=== PATIENT | female | born 1980 | race Caucasian/White ===

== ENCOUNTER 2022-12-05 10:53 | Emergency (ER) | payer SELFPAY ==
--- NOTE | 2022-12-05 11:05 | ERPHSYRPT ---
- History of Present Illness Time Seen by Provider: 12/05/22 11:04 Source: patient Exam Limitations: no limitations Physician History: This is an overweight 42-year-old white female patient who was walking in a nearby park yesterday and then twisted her right foot and ankle. Today, she noticed increased tenderness, swelling and bruising to her right foot and ankle. She can bear weight but it hurts to do so. Method of Injury: twisted Occurred: yesterday Quality: aching, throbbing Severity of Pain-Max: mild Severity of Pain-Current: mild (To moderate to moderate) Lower Extremities Pain: foot: right, ankle: right Modifying Factors: Improves With: movement Associated Symptoms: other (Can bear weight but it hurts to do so) Allergies/Adverse Reactions: hydromorphone Allergy (Verified 12/05/22 11:09) Difficulty Breathing morphine Allergy (Verified 12/05/22 11:09) Difficulty Breathing nickel Allergy (Verified 12/05/22 11:09) Hives titanium Allergy (Verified 12/05/22 11:09) Hives zinc Allergy (Verified 12/05/22 11:09) Hives Travel Risk - International Travel Have you traveled outside of the country in past 3 weeks: No - Coronavirus Screening Are you exhibiting any of the following symptoms?: No Close contact with a COVID-19 positive Pt in past 14-21 Days: No - Review of Systems Constitutional: No Symptoms Eyes: No Symptoms Ears, Nose, & Throat: No Symptoms Respiratory: No Symptoms Cardiac: No Symptoms Abdominal/Gastrointestinal: No Symptoms Genitourinary Symptoms: No Symptoms Musculoskeletal: Fall, Injury (Right foot and ankle) Skin: No Symptoms Neurological: No Symptoms Psychological: No Symptoms Endocrine: No Symptoms Hematologic/Lymphatic: No Symptoms Immunological/Allergic: No Symptoms All Other Systems: Reviewed and Negative - Past Medical History Pertinent Past Medical History: Yes - Past Surgical History Past Surgical History: Yes - Nursing Vital Signs Nursing Vital Signs: Initial Vital Signs Blood Pressure 147/82 12/05/22 11:08 Pain Scale Pain Intensity 0 - Physical Exam General Appearance: no apparent distress, alert, anxiety, obese Eyes, Ears, Nose, Throat Exam: normal ENT inspection, moist mucous membranes Neck Exam: normal inspection, non-tender, supple, full range of motion Cardiovascular/Respiratory Exam: chest non-tender, no respiratory distress Gastrointestinal/Abdominal Exam: non-tender Back Exam: normal inspection, normal range of motion, No CVA tenderness, No vertebral tenderness Hips Exam: bilateral: non-tender, normal inspection, normal range of motion, no evidence of injury Legs Exam: bilateral leg: non-tender, normal inspection, normal range of motion, no evidence of injury Knees Exam: bilateral knee: non-tender, normal inspection, normal range of motion, no evidence of injury Ankle Exam: right ankle: bone tenderness, soft tissue tenderness, swelling, left ankle: non-tender, normal inspection, normal range of motion, no evidence of injury Foot Exam: right foot: bone tenderness, ecchymosis, soft tissue tenderness, swelling, left foot: non-tender, normal inspection, normal range of motion, no evidence of injury Neuro/Tendon Exam: normal sensation, normal motor functions, normal tendon functions, responds to pain, no evidence tendon injury Mental Status Exam: alert, oriented x 3, cooperative Skin Exam: normal color, warm, dry SpO2 Interpretation: normal O2 Delivery: Room Air - Course Nursing assessment & vital signs reviewed: Yes Ordered Tests: Active Orders 24 hr Category Date Time Status ANKLE (3 VIEWS) Stat Exams 12/05/22 11:16 Completed FOOT (MINIMUM 3 VIEWS) Stat Exams 12/05/22 11:16 Completed - Progress Progress: improved, pain not gone completely Progress Note: 12/05/22 11:42 This patient's medical issue is 1 of low complexity. The level of complexity in the work-up performed is based on review of the patient's past medical history, review of the patient's medication list, review of the patient's drug allergy list, history of present illness and physical findings on examination. The work-up in this patient includes x-ray of the right foot and ankle. 12/05/22 12:03 X-ray of the right ankle shows no acute fracture or dislocation. I read the impression from the radiologist prior to discharging the patient home. X-ray of the right foot was interpreted by the radiologist and I reviewed the impression prior to discharging the patient home. There is corner fractures base distal first phalanx medial aspect, head proximal first phalanx, lateral aspect and base proximal first phalanx medial aspect. 12/05/22 12:09 Patient states that she can take Percocet or [place] pain medication without issues 12/05/22 12:10 Counseled pt/family regarding: diagnosis, need for follow-up, rad results Medical Desision Making - Diagnostic Testing Diagnostic test were ordered, analyzed, and reviewed by me: Yes Radiological Interpretation: Reviewed by me, Teleradiologist Report - Risk of complications The pt has a mod risk of morbidity or mortality based on: Need for prescription drug management - Departure Departure Disposition: Home Clinical Impression: Closed fracture of one or more phalanges of right foot Condition: Stable Critical Care Time: No Referrals: DOCTOR,NO FAMILY [Primary Care Provider] - Follow up/PCP as directed Additional Instructions: Ice pack to tender area 3 times a day for the next [address] Grigsby, podiatry, today to make arrangements for follow-up appointment for further evaluation management. Use walking shoe. Prescriptions: Oxycodone HCl/Acetaminophen [Percocet 5-325 mg Tablet] 1 each PO Q8H PRN PRN #6 tablet MDD 3 PRN Reason: Moderate To Severe Pain
[2022-12-05 11:27] VITALS: TEMP 99
--- NOTE | 2022-12-05 11:55 | XRAY ---
Indication: Pain and swelling following fall. Comparison: None 3 view right ankle demonstrates tiny posterior heel spur. No other bony, articular, or soft tissue abnormalities.
--- NOTE | 2022-12-05 11:59 | XRAY ---
Indication: Pain and swelling following fall. Comparison: None 3 nonweightbearing views right foot demonstrates nondisplaced corner fractures base distal 1st phalanx medial aspect, head proximal 1st phalanx lateral aspect, and base proximal 1st phalanx medial aspect. Incidental tiny posterior heel spur. No other bony, articular, or soft tissue abnormalities.
[2022-12-05 12:03] VITALS: BP 124/81; PULSE 70; O2SAT 95
[2022-12-05 12:38] VITALS: RESP 16
== END 2022-12-05 12:34 | disposition home or self-care (01) ==
LOC: ED 10:53
DX: S92.491A Other fracture of right great toe, initial encounter for closed fracture (principal); X50.0XXA Overexertion from strenuous movement or load, initial encounter; Y93.01 Activity, walking, marching and hiking; Y92.830 Public park as the place of occurrence of the external cause; M25.571 Pain in right ankle and joints of right foot; Z79.891 Long term (current) use of opiate analgesic
CPT/HCPCS: 73610; 73630; 99283

== ENCOUNTER 2023-09-03 13:38 | Day surgery (SDC) | payer BC ==
[2023-09-03] MEDS ORDERED: Lactated Ringers 1,000 ML IV ONE (15:32)
[2023-09-03] MEDS ORDERED: TORAdol 30 mg Injection ONE (16:02)
[2023-09-03] MEDS ORDERED: DIPRIVAN 200 MG/20 ML IV ONE (16:11)
--- NOTE | 2023-09-03 16:51 | XRAY ---
Indication: Left L4-S1 transforaminal MORRIS. Intraoperative fluoroscopy provided for 23 seconds. 3 digital spot image submitted for interpretation demonstrates posterior needle tips projecting over the expected left L4 and L5 nerve roots. Small amount of contrast injected for needle tip placement. Correlate with intraoperative findings/report.
--- NOTE | 2023-09-03 17:04 | XRAY ---
23 seconds of fluoroscopy was used in surgery for a left L4-S1 transforaminal MORRIS.
== END 2023-09-03 16:27 | disposition home or self-care (01) ==
LOC: SDC-PAIN 13:38
PROVIDERS: ATTEND Psychiatry & Neurology Pain Medicine
DX: M47.816 Spondylosis without myelopathy or radiculopathy, lumbar region (principal)
CPT/HCPCS: 64483; 64484; 72100; 77003; J1885; J2704; Q9966

== ENCOUNTER 2023-10-18 09:12 | Emergency (ER) | payer BC ==
[2023-10-18 09:28] VITALS: TEMP 97
[2023-10-18] MEDS ORDERED: TORAdol 30 mg Injection ONE (09:43)
[2023-10-18] MEDS: TORAdol 30 mg Injection IM ONE (09:45)
[2023-10-18] MEDS ORDERED: Norflex 60 MG/2 ML ONE (10:33)
[2023-10-18] MEDS: Norflex 60 MG/2 ML IM ONE (10:34)
[2023-10-18 11:16] VITALS: O2SAT 95
--- NOTE | 2023-10-18 12:04 | ERPHSYRPT ---
- History of Present Illness Time Seen by Provider: 10/18/23 10:32 Patient Subjective Stated Complaint: pt here for pain to left hip that radiates down leg, she sees pain for back. Triage Nursing Assessment: pt alert, arrived per wc, able to undress, resp easy, skin w/d/p. moves all ext well, Physician History: 43 years old fairly healthy female with history of back pain on Lyrica presented in the ER with complaining of pain right hip/right groin area of sudden onset while she tried to get up from a sitting position. Patient reports moderate to severe sharp pain, worse with ambulation and movements at the hip and better with resting. No numbness tingling or weakness of lower extremity. Patient reports this pain different than her routine back pain. Denies any fall or trauma. She has taken [id number] pain medications at home with no significant relief. Allergies/Adverse Reactions: hydromorphone Allergy (Verified 10/18/23 09:21) Difficulty Breathing morphine Allergy (Verified 10/18/23 09:21) Difficulty Breathing nickel Allergy (Verified 10/18/23 09:21) Hives titanium Allergy (Verified 10/18/23 09:21) Hives zinc Allergy (Verified 10/18/23 09:21) Hives Home Medications: Pregabalin [Lyrica 75 mg Cap] 75 mg PO BID 10/18/23 [History] Hx Tetanus, Diphtheria Vaccination/Date Given: Yes Hx Influenza Vaccination/Date Given: No Hx Pneumococcal Vaccination/Date Given: No Immunizations Up to Date: Yes Travel Risk - International Travel Have you traveled outside of the country in past 3 weeks: No - Emerging Infectious Disease Are you exhibiting symptoms associated with any current EIDs: No - Review of Systems Constitutional: No Symptoms Ears, Nose, & Throat: No Symptoms Respiratory: No Symptoms Cardiac: No Symptoms Abdominal/Gastrointestinal: No Symptoms Genitourinary Symptoms: No Symptoms Musculoskeletal: Back Pain, Joint Pain Skin: No Symptoms Neurological: No Symptoms Endocrine: No Symptoms Hematologic/Lymphatic: No Symptoms - Past Medical History Pertinent Past Medical History: Yes ENT History: No Pertinent History Cardiac History: No Pertinent History Respiratory History: No Pertinent History Endocrine Medical History: No Pertinent History Musculoskeletal History: No Pertinent History GI Medical History: GERD History: No Pertinent History Psycho-Social History: Bipolar, Depression Female Reproductive Disorders: No Pertinent History - Past Surgical History Past Surgical History: Yes Gastrointestinal: Appendectomy, Cholecystectomy Musculoskeletal: Orthopedic Surgery Female Surgical History: Hysterectomy, Section, Tubal Ligation Other Surgical History: thumb tumor removed - Female History Hx Last Menstrual Period: hyster Hx Now: No - Social History Smoking Status: Light tobacco smoker Exposure to second hand smoke: No Drug Use: none Patient Lives Alone: Yes - Social Determinants of Health Will the patient participate in the screening: Declined to provide - Nursing Vital Signs Nursing Vital Signs: Initial Vital Signs Temperature 97.0 F 10/18/23 09:27 Pulse Rate 81 10/18/23 09:27 Respiratory Rate 18 10/18/23 09:27 Blood Pressure 131/91 10/18/23 09:27 O2 Sat by Pulse Oximetry 98 10/18/23 09:27 Pain Scale Pain Intensity [Left Hip] 8 Pain Intensity 5 - Physical Exam General Appearance: no apparent distress Neck Exam: normal inspection, full range of motion Cardiovascular/Respiratory Exam: normal breath sounds, regular rate/rhythm Gastrointestinal/Abdominal Exam: non-tender, soft, no organomegaly, no hernia, tenderness (Left groin), No guarding Back Exam: normal inspection, normal range of motion, No vertebral tenderness, No muscle spasm, No point tenderness Hips Exam: right: non-tender, normal inspection, normal range of motion, no evidence of injury, left: limited range of motion, pain, soft tissue tenderness Legs Exam: bilateral leg: non-tender, normal inspection, normal range of motion, no evidence of injury Knees Exam: bilateral knee: non-tender, normal inspection, normal range of motion, no evidence of injury Neuro/Tendon Exam: normal sensation, normal motor functions, normal tendon functions Mental Status Exam: alert, oriented x 3, cooperative Skin Exam: normal color SpO2 Interpretation: normal SpO2: 95 O2 Delivery: Room Air Ordered Tests: Active Orders 24 hr Category Date Time Status HIP UNI (2V) INCL PEL IF DONE Stat Exams 10/18/23 09:28 Taken Medication Summary Discontinued Medications Generic Name Dose Route Start Last Admin Trade Name Freq PRN Reason Stop Dose Admin Ketorolac Tromethamine 30 mg 10/18/23 09:42 10/18/23 09:45 Ketorolac Tromethamine 30 Mg/Ml Inj IM 10/18/23 09:43 30 mg STAT ONE Administration Ketorolac Tromethamine Confirm 10/18/23 09:43 Ketorolac Tromethamine 30 Mg/Ml Inj Administered 10/18/23 09:44 Dose 30 mg .ROUTE .STK-MED ONE Orphenadrine Citrate 60 mg 10/18/23 10:32 10/18/23 10:34 Orphenadrine Citrate 60 Mg/2 Ml Vial IM 10/18/23 10:33 60 mg STAT ONE Administration Orphenadrine Citrate Confirm 10/18/23 10:33 Orphenadrine Citrate 60 Mg/2 Ml Vial Administered 10/18/23 10:34 Dose 60 mg .ROUTE .STK-MED ONE - Progress Progress: improved Progress Note: 10/18/23 12:01 43-year-old with history of back pain is evaluated in the ER for left hip/groin pain sudden onset without fall or trauma yesterday. Patient has pain with movements at the hip. No bony tenderness, does have some tenderness in the groin area. No obvious swelling or hernia. I have obtained x-rays of hip which are negative for acute fracture dislocation reviewed by me, official report is pending. I believe patient has muscle strain. She is given Toradol and Norflex, on reevaluation her pain is better but not completely resolved. Will continue with Flexeril to go home and recommended taking Tylenol ibuprofen along with Lyrica which she takes regularly. Discussed signs symptoms of cauda equina, worsening back pain, hip or groin pain needing return to ER which she seems understanding. Stable for discharge. Counseled pt/family regarding: need for follow-up, rad results Medical Desision Making - Diagnostic Testing Diagnostic test were ordered, analyzed, and reviewed by me: Yes Radiological Interpretation: Interpreted by me, Reviewed by me - Risk of complications The pt has a mod risk of morbidity or mortality based on: Need for prescription drug management - Departure Departure Disposition: Home Clinical Impression: Strain of left groin Condition: Stable Critical Care Time: No Referrals: POONAM ARELLANO NP [Primary Care Provider] - Follow up with PCP 1 day Instructions: Low Back Pain (DC), Sciatica (DC), Groin Strain (DC) Additional Instructions: Continue with Lyrica and take Tylenol ibuprofen as needed. Follow-up with primary care and orthopedics for reevaluation if pain does not go away. Return to ER for excruciating pain, difficulty ambulation or if noticed any swelling in the groin, numbness tingling or weakness/loss of bowel or bladder control/saddle anesthesia. Etc. Prescriptions: Cyclobenzaprine HCl 10 mg [Flexeril 10 MG] 10 mg PO TID 5 Days #15 tablet
[2023-10-18 12:19] VITALS: BP 125/77; PULSE 51; RESP 17
--- NOTE | 2023-10-18 19:54 | XRAY ---
Indication: Pain. No known injury. Comparison: May 13, 2023 2 view left hip obtained. Again no bony, articular, or soft tissue abnormalities.
== END 2023-10-18 12:15 | disposition home or self-care (01) ==
LOC: ED 09:12
DX: S39.011A Strain of muscle, fascia and tendon of abdomen, initial encounter (principal); M25.551 Pain in right hip; Z79.899 Other long term (current) drug therapy; Z72.0 Tobacco use
CPT/HCPCS: 73502; 96372; 99283; J1885; J2360